=== PATIENT | male | born 1990 | race Caucasian/White ===

== ENCOUNTER 2017-07-19 22:37 | Emergency (ER) | payer SELFPAY ==
[~2017-07-19] VITALS: Ht 177.8 cm; Wt 67.9 kg
[2017-07-19 22:44] VITALS: TEMP 37; Ht 177.8 cm; Wt 67.9 kg
[2017-07-19] MEDS ORDERED: FENTANYL CITRATE INJ 50 MCG/1 ML 2 ML VIAL IV ONE (23:00)
[2017-07-19] MEDS ORDERED: OXYC1TAB3 PO (23:55)
[2017-07-20] MEDS ORDERED: OXYCODONE IR HOME PACK PO ONE
[2017-07-20 00:36] VITALS: BP 141/86; PULSE 82; O2SAT 99
--- NOTE | 2017-07-20 07:17 | DIAGNOSTIC IMAGING REPORT ---
L WRIST MIN 3 VIEWS ROUTINE CLINICAL HISTORY: 26 years-old Male presenting with Fall. Wrist injury with deformity. TECHNIQUE: Frontal, bilateral oblique, and lateral views of the left wrist were obtained. COMPARISON: None. FINDINGS: Mildly impacted extra-articular fracture of the distal radial metaphysis. No significant angulation or displacement. Impaction is greatest along the dorsal aspect. Significant dorsal soft tissue swelling. Volar displacement of the pronator quadratus fat plane. The carpus appears intact. Nondisplaced ulnar styloid fracture may also be present. IMPRESSION: 1. Mildly impacted extra-articular fracture of the distal radial metaphysis (Colles' type fracture). No significant malalignment. 2. Possible nondisplaced ulnar styloid fracture. Electronically signed by: Paramjit Jauregui M.D. 07/20/2017 7:15 AM Dictated Date/Time: 07/20/2017 7:13 AM
--- NOTE | 2017-07-20 19:29 | EMERGENCY ROOM VISIT NOTE ---
History First contact with patient: 22:50 Chief Complaint: FALL Stated Complaint: FELL DOWN ON LEFT WRIST History of Present Illness The patient is a 26 year old male who presents to the Emergency Room with complaints of left wrist injury that occurred about 30 minutes ago. The patient was walking, when he slipped, fell backwards, and tried to catch himself with his left hand. He had immediate pain and discomfort with deformity of the left wrist. He evidently has sensation to the distal hand and reports no blood or bleeding. He has not had injury to this hand or wrist before. He did not strike his head. He does not take medication on regular basis. He rates his pain a 9/10 and has not taken anything [id number] for his discomfort. Review of Systems More than 10 systems were reviewed and otherwise negative with the exception of history of present illness. Past Medical/Surgical History No chronic medical disease Family History No pertinent family history Social History Smoking Status: Never Smoker Occupation Status: other (visiting friends locally) Current/Historical Medications Scheduled Oxycodone Immediate Rel Tab (Roxicodone Ir), 1-2 TAB PO Q4H Physical Exam Vital Signs Date Time Temp Pulse Resp B/P (MAP) Pulse Ox O2 Delivery O2 Flow Rate FiO2 07/20/17 00:36 82 18 141/86 99 07/20/17 00:21 82 18 141/86 99 Room Air 07/19/17 22:44 37.0 85 20 139/41 98 Room Air Physical Exam VITALS: Vitals are noted on the nurse's note and reviewed by myself. Vital signs stable. GENERAL: Well-developed, well-nourished, male, who is in no acute distress and resting comfortably. Patient is cooperative with the examination. HEAD: Normocephalic atraumatic. NECK: Supple without nuchal rigidity. No lymphadenopathy. No thyromegaly. Cervical spine is nontender. HEART: Regular rate and rhythm without murmurs gallops or rubs. LUNGS: Clear to auscultation bilaterally without wheezes, rales or rhonchi. No retractions or accessory muscle use. MUSCULOSKELETAL: There is obvious deformity of the left wrist at the distal radius. Deputy K 9 strength is 1/5 to the left hand. Neurovascular status is intact otherwise. No tenderness of the left elbow or left shoulder. No blood or bleeding is noted. NEURO: Patient was alert and oriented to person place and time. CN II through XII grossly intact. Medical Decision & Procedures ER Provider Diagnostic Interpretation: L WRIST MIN 3 VIEWS ROUTINE CLINICAL HISTORY: 26 years-old Male presenting with Fall. Wrist injury with deformity. TECHNIQUE: Frontal, bilateral oblique, and lateral views of the left wrist were obtained. COMPARISON: None. FINDINGS: Mildly impacted extra-articular fracture of the distal radial metaphysis. No significant angulation or displacement. Impaction is greatest along the dorsal aspect. Significant dorsal soft tissue swelling. Volar displacement of the pronator quadratus fat plane. The carpus appears intact. Nondisplaced ulnar styloid fracture may also be present. IMPRESSION: 1. Mildly impacted extra-articular fracture of the distal radial metaphysis (Colles' type fracture). No significant malalignment. 2. Possible nondisplaced ulnar styloid fracture. Medications Administered Medications (Trade) Dose Ordered Sig/Radha Route Start Time Stop Time Status Last Admin Dose Admin Fentanyl Citrate (Fentanyl Inj) 75 mcg NOW ONCE IV 07/19/17 23:00 07/19/17 23:01 DC 07/19/17 23:21 75 MCG Oxycodone HCl (Roxicodone Immediate Rel 5MG Home Pack) 1 homepack UD ONCE PO 07/20/17 00:00 07/20/17 00:01 DC 07/20/17 00:27 1 HOMEPACK ED Course Physical exam and history were performed. Nursing notes, EMR, and Medication List were personally reviewed. Patient appears to have suffered injury to his left wrist after falling just prior to arrival. IV access was established and the patient was given IV fentanyl here in the department. X-ray was performed and reviewed by herself and my attending and showing an acute impacted fracture. Official x-ray reading is as above and does confirm this. The patient was placed in finger traps and allowed to relax here in the department. An Ortho-Glass splint was placed with neurovascular status remaining intact. The patient will need to follow with orthopedics in a few hours when the office opens. He will be given a short course of pain medication as well as conservative and treatment instructions. He was otherwise invited back to the ER with any new, worsening, or concerning symptoms. The chart was completed utilizing [employer] Voice Recognition Software. Grammatical errors, random word insertions, pronoun errors, and incomplete sentences are an occasional consequence of this system due to software limitations, ambient noise, and hardware issues. Any formal questions or concerns about the content, text, or information contained within the body of this dictation should be directly addressed to the provider for clarification. . Medical Decision Differential diagnosis includes, but is not limited to: Sprain, strain, fracture , dislocation, subluxation, contusion, and others Impression Primary Impression: Fall Additional Impression: Left wrist fracture Departure Information Dispostion Home / Self-Care Condition GOOD Prescriptions Oxycodone Immediate Rel Tab (ROXICODONE IR) 5 Mg Tab 1-2 TAB PO Q4H for Pain for 3 Days, #24 TAB Prov: Gadiel Coleman PA-C 07/19/17 Referrals Paramjit Lujan MD Forms HOME CARE DOCUMENTATION FORM, IMPORTANT VISIT INFORMATION Patient Instructions My [facility], ED Fx Wrist General, ED Compartment Syndrome At Risk For, ED RICE Additional Instructions You were seen and evaluated today on an emergency basis only. This is not a substitute for, or an effort to provide, complete comprehensive medical care. It is not possible to recognize and treat all injuries or illnesses in a single emergency department visit. For this reason it is recommended that you followup with [facility] , Dr. Lujan's office, tomorrow for recheck. Call the office in the morning and let them know you were seen in the ER. For baseline pain relief you may alternate ibuprofen and acetaminophen every 4 hours for pain control. Take 600 mg ibuprofen (Advil) and then 4 hours later take 1000 mg acetaminophen (Tylenol). Do not take more than 3000 mg acetaminophen in a single day. Oxycodone (OxyIR) 5mg: Take ONE or TWO pills every FOUR to SIX hours for breakthrough pain. Avoid alcohol, operating machinery or dangerous equipment, working on ladders or roofs, DRIVING, or situations where being under the influence may be dangerous. It is recommended to use an [id number] stool softener such as Colace, 100mg twice daily while taking this medication to avoid constipation. Do not get your splint wet. Wear your sling for comfort. You are welcome to return to the emergency department anytime with new, worsening, or concerning symptoms. Problem Qualifiers
== END 2017-07-20 00:37 | disposition home or self-care (01) ==
LOC: C.EDB 22:41 → C.EDA 07-20 00:37
DX: S52.552A Other extraarticular fracture of lower end of left radius, initial encounter for closed fracture (principal); W19.XXXA Unspecified fall, initial encounter